=== PATIENT | male | born 1960 | race African-American/Black ===

== ENCOUNTER 2020-07-14 13:05 | Inpatient (IN) ==
[2020-07-14 13:48] LABS: Basophils # 0.1 10*3/uL (0.0-0.2); Basophils % 0.8 % (0.0-0.8); Eosinophils # 0.3 10*3/uL (0.0-0.87); Eosinophils % 2.5 % (0.00-10.9); Hematocrit 48.1 VOL% (42.0-52.0); Hemoglobin 15.7 GM/DL (14.0-18.0); Immature Granulocytes % 0.3 %; Immature Granulocytes Absolute 0.04 #; Lymphocytes # 1.9 10*3/uL (1.4-4.0); Mean Corpuscular HGB Conc 32.6 GM/DL (32-36); Mean Corpuscular Volume 85.1 FL (87-102); Mean Platelet Volume 10.5 FL (9.6-12.0); Monocytes % 8.7 % (1.7-12.7); Neutrophils % 71.7 % (38.7-73.9); Platelet Count 257 T/CUMM (130-400); Red Blood Count 5.65 MC/CUMM (3.8-5.5); White Blood Count 11.8 T/CUMM (4-12)
[2020-07-14 13:57] LABS: Albumin 3.4 G/DL (3.4-5.0); Bilirubin,Total 0.7 MG/DL (0.2-1.0); Calcium 9.3 MG/DL (8.5-10.1); Osmolality,Calculated 285.3 MOS/KG (273-304); Potassium 3.5 MMOL/L (3.5-5.1); Total Protein 7.3 G/DL (6.4-8.2)
[2020-07-14] MEDS ORDERED: ASPIRIN 325 MG TABLET PO STA (14:06)
[2020-07-14] MEDS ORDERED: ENOXAPARIN 100 MG/ML SYRINGE SUBCUT STA (14:06)
[2020-07-14] MEDS ORDERED: NITROGLYCERIN SL 0.4 MG TABLET SL PRN (14:06)
[2020-07-14] MEDS ORDERED: ENOXAPARIN 40 MG/0.4 ML SYRINGE ONE (14:23)
[2020-07-14] MEDS ORDERED: AZITHROMYCIN 250 MG TABLET PO STA (14:25)
[2020-07-14] MEDS ORDERED: cefTRIAXone 1,000 MG in SODIUM CHLORIDE 0.9% 100 ML IV STA (14:25)
[2020-07-14 14:43] LABS: Barbiturates Screen,Urine Negative (Negative); Benzodiazepines Screen,Urine Negative (Negative); Cannabinoid Screen,Urine Negative (Negative); Opiate Screen,Urine Negative (Negative); Phencyclidine Screen,Urine Negative (Negative)
[2020-07-14] MEDS ORDERED: MORPHINE 4 MG/1 ML VIAL IV PRN (16:10)
[2020-07-14] MEDS ORDERED: carvediloL 3.125 MG TABLET PO SCH (21:00)
[2020-07-15 07:02] LABS: Basophils # 0.1 10*3/uL (0.0-0.2); Basophils % 1.1 % (0.0-0.8); Eosinophils # 0.5 10*3/uL (0.0-0.87); Eosinophils % 5.6 % (0.00-10.9); Hematocrit 46.2 VOL% (42.0-52.0); Hemoglobin 15.2 GM/DL (14.0-18.0); Immature Granulocytes % 0.5 %; Immature Granulocytes Absolute 0.05 #; Lymphocytes # 2.1 10*3/uL (1.4-4.0); Lymphocytes % 21.6 % (21.2-54.2); Mean Corpuscular HGB Conc 32.9 GM/DL (32-36); Mean Corpuscular Volume 85.9 FL (87-102); Mean Platelet Volume 10.7 FL (9.6-12.0); Monocytes % 11.2 % (1.7-12.7); Platelet Count 240 T/CUMM (130-400); Red Blood Count 5.38 MC/CUMM (3.8-5.5); Red Cell Distribution Width 14.7 % (9.3-17.3); White Blood Count 9.7 T/CUMM (4-12)
[2020-07-15] MEDS: SODIUM CHLORIDE 0.9% 1,000 ML IV SCH ×2 (07:17→17:14)
[2020-07-15 07:29] LABS: Calcium 9.5 MG/DL (8.5-10.1); Osmolality,Calculated 287.1 MOS/KG (273-304); Potassium 3.5 MMOL/L (3.5-5.1)
[2020-07-15 07:34] LABS: Risk Ratio 4.45; VLDL CHOLESTEROL 33.8 MG/DL
[2020-07-15] MEDS ORDERED: ENOXAPARIN 150 MG/ML SYRINGE SUBCUT ONE (08:11)
[2020-07-15] MEDS: amLODIPine 10 MG TABLET PO SCH (08:59)
[2020-07-15] MEDS: ASPIRIN EC 81 MG TABLET PO SCH (08:59)
[2020-07-15] MEDS ORDERED: ENOXAPARIN 30 MG/0.3 ML SYRINGE SUBCUT SCH (09:00)
[2020-07-15] MEDS: NICOTINE 21 MG/24 HR PATCH TRANSDERM SCH (09:00)
[2020-07-15] MEDS: cefTRIAXone 1,000 MG in SODIUM CHLORIDE 0.9% 100 ML IV SCH (09:01)
[2020-07-15] MEDS: AZITHROMYCIN INJ 500 MG in SODIUM CHLORIDE 0.9% 250 ML IV SCH (10:01)
[2020-07-15] MEDS: guaiFENesin/DM ER 600-30 MG TABLET PO SCH ×2 (10:38→22:26)
[2020-07-15] MEDS ORDERED: ROSUVASTATIN 20 MG TABLET PO SCH (21:00)
[2020-07-16] MEDS: SODIUM CHLORIDE 0.9% 1,000 ML IV SCH (02:57)
[2020-07-16 05:13] LABS: Basophils % 0.1 % (0.0-0.8); Hematocrit 29.5 VOL% (42.0-52.0); Hemoglobin 9.9 GM/DL (14.0-18.0); Immature Granulocytes % 0.9 %; Immature Granulocytes Absolute 0.11 #; Lymphocytes # 0.7 10*3/uL (1.4-4.0); Lymphocytes % 5.8 % (21.2-54.2); Mean Corpuscular HGB Conc 33.6 GM/DL (32-36); Mean Corpuscular Volume 99.3 FL (87-102); Neutrophils % 85.2 % (38.7-73.9); Platelet Count 133 T/CUMM (130-400); Red Blood Count 2.97 MC/CUMM (3.8-5.5); Red Cell Distribution Width 12.5 % (9.3-17.3); White Blood Count 12.2 T/CUMM (4-12)
[2020-07-16 05:53] LABS: Calcium 8.3 MG/DL (8.5-10.1); Osmolality,Calculated 285.7 MOS/KG (273-304); Potassium 4.5 MMOL/L (3.5-5.1)
[2020-07-16] MEDS: cefTRIAXone 1,000 MG in SODIUM CHLORIDE 0.9% 100 ML IV SCH (08:46)
[2020-07-16] MEDS: ASPIRIN EC 81 MG TABLET PO SCH (08:49)
[2020-07-16] MEDS: amLODIPine 10 MG TABLET PO SCH (08:49)
[2020-07-16] MEDS: NICOTINE 21 MG/24 HR PATCH TRANSDERM SCH (09:37)
[2020-07-16] MEDS: AZITHROMYCIN INJ 500 MG in SODIUM CHLORIDE 0.9% 250 ML IV SCH (11:55)
[2020-07-16] MEDS: guaiFENesin/DM ER 600-30 MG TABLET PO SCH ×2 (11:58→22:31)
[2020-07-16] MEDS: LOSARTAN 25 MG TABLET PO SCH (11:58)
[2020-07-16] MEDS: METOPROLOL SUCCINATE XL 25 MG TABLET PO SCH (11:58)
[2020-07-16] MEDS ORDERED: FUROSEMIDE 40 MG/4 ML VIAL IV ONE (11:59)
[2020-07-16] MEDS ORDERED: FUROSEMIDE 40 MG/4 ML VIAL IV SCH (12:00)
[2020-07-17 06:27] LABS: Osmolality,Calculated 277.7 MOS/KG (273-304); Potassium 3.4 MMOL/L (3.5-5.1)
[2020-07-17 06:29] LABS: Bilirubin,Direct 0.1 MG/DL (0.0-0.20); Bilirubin,Indirect 1.5 MG/DL (0.0-1.0); Bilirubin,Total 1.6 MG/DL (0.2-1.0); Total Protein 7.4 G/DL (6.4-8.2)
[2020-07-17] MEDS ORDERED: POTASSIUM CHLORIDE 20 MEQ TABLET PO ONE (07:41)
[2020-07-17 07:54] LABS: Basophils # 0.1 10*3/uL (0.0-0.2); Basophils % 0.7 % (0.0-0.8); Eosinophils # 0.6 10*3/uL (0.0-0.87); Eosinophils % 6.8 % (0.00-10.9); Hematocrit 43.7 VOL% (42.0-52.0); Hemoglobin 14.8 GM/DL (14.0-18.0); Immature Granulocytes % 0.2 %; Immature Granulocytes Absolute 0.02 #; Lymphocytes # 1.6 10*3/uL (1.4-4.0); Lymphocytes % 19.2 % (21.2-54.2); Mean Corpuscular HGB Conc 33.9 GM/DL (32-36); Mean Corpuscular Volume 84.2 FL (87-102); Neutrophils % 62.1 % (38.7-73.9); Platelet Count 266 T/CUMM (130-400); Red Blood Count 5.19 MC/CUMM (3.8-5.5); Red Cell Distribution Width 14.2 % (9.3-17.3); White Blood Count 8.4 T/CUMM (4-12)
[2020-07-17] MEDS ORDERED: AZITHROMYCIN 250 MG TABLET PO SCH (09:00)
[2020-07-17] MEDS ORDERED: ROSUVASTATIN 10 MG TABLET PO SCH (09:00)
[2020-07-17] MEDS: ASPIRIN EC 81 MG TABLET PO SCH (09:55)
[2020-07-17] MEDS: cefTRIAXone 1,000 MG in SODIUM CHLORIDE 0.9% 100 ML IV SCH (09:55)
[2020-07-17] MEDS: amLODIPine 10 MG TABLET PO SCH (09:56)
[2020-07-17] MEDS: METOPROLOL SUCCINATE XL 25 MG TABLET PO SCH (09:56)
[2020-07-17] MEDS: LOSARTAN 25 MG TABLET PO SCH (09:56)
[2020-07-17] MEDS ORDERED: AMOXICILLIN/CLAV 875 MG TABLET PO SCH (10:30)
[2020-07-17] MEDS: NICOTINE 21 MG/24 HR PATCH TRANSDERM SCH (10:37)
[2020-07-17] MEDS: guaiFENesin/DM ER 600-30 MG TABLET PO SCH (11:14)
[2020-07-17 12:44] VITALS: BP 130/90
== END 2020-07-17 13:49 | disposition home or self-care (01) | DRG 280 ==
LOC: N.ED 13:05 → N.EDINP 23:37 → N.TELES 07-15 00:07
PROVIDERS: ADMIT Internal Medicine Geriatric Medicine; ATTEND Internal Medicine Geriatric Medicine